=== PATIENT | female | born 1970 | race Caucasian/White ===

== ENCOUNTER → 2016-10-31 | Outpatient (CLI) | payer MEDICAID, BC ==
--- NOTE | 2016-11-01 11:50 | MM ---
Reason for exam: screening (asymptomatic). Last mammogram was performed 2 years and 8 months ago. History: Patient had first child at age 36. Physical Findings: A clinical breast exam by your physician is recommended on an annual basis and results should be correlated with mammographic findings. MG 3D Screening Mammo W/Cad Bilateral CC and MLO view(s) were taken. Prior study comparison: March 07, 2014, bilateral MG screening mammo w CAD. The breast tissue is heterogeneously dense. This may lower the sensitivity of mammography. Finding: There is a 4 mm high density, spiculated round mass located 6 cm from the nipple in the left breast. ASSESSMENT: Incomplete: need additional imaging evaluation, BI-RAD 0 RECOMMENDATION: Special view mammogram of the left breast. If lesion persists on supplemental views, image directed ultrasound is recommended. [facility] will attempt to contact patient to return for supplemental views and ultrasound if indicated.
== END | disposition home or self-care (01) ==
LOC: RADMAMWWP 08:30
PROVIDERS: ATTEND Obstetrics & Gynecology
DX: Z12.31 Encounter for screening mammogram for malignant neoplasm of breast (principal)
CPT/HCPCS: 77063; G0202

== ENCOUNTER → 2016-11-03 | Outpatient (CLI) | payer MEDICAID, BC ==
--- NOTE | 2016-11-03 09:00 | MM ---
Reason for exam: additional evaluation requested from abnormal screening. Last mammogram was performed less than 1 month ago. History: Patient had first child at age 36. Physical Findings: Patient refused breast exam. MG 3D Work Up W/Cad LT LM and spot compression CC view(s) were taken of the left breast. Prior study comparison: October 31, 2016, bilateral MG 3d screening mammo w/cad. March 07, 2014, bilateral MG screening mammo w CAD. The breast tissue is heterogeneously dense. This may lower the sensitivity of mammography. No suspicious abnormality. Abnormality appears as fibroglandular tissue on additional views. These results were verbally communicated with the patient and result sheet given to the patient on 11/03/16. ASSESSMENT: Negative, BI-RAD 1 RECOMMENDATION: Return to routine screening mammogram schedule for both breasts.
== END | disposition home or self-care (01) ==
LOC: RADMAMWWP 07:56
PROVIDERS: ATTEND Obstetrics & Gynecology
DX: R92.8 Other abnormal and inconclusive findings on diagnostic imaging of breast (principal)
CPT/HCPCS: G0206; G0279

== ENCOUNTER → 2017-02-10 | Outpatient (CLI) | payer MEDICAID, BC ==
--- NOTE | 2017-02-16 07:06 | HM ---
HOLTER MONITOR REPORT 24 HOLTER MONITOR: A 46-year-old female with history of recurrent palpitations following SVT ablation. A 24-four monitor shows sinus mechanism with one brief run of SVT/atrial tachycardia, nonsustained. No bradycardia or pauses. Infrequent PVCs and ventricular couplets. No nonsustained ventricular tachycardia. No sustained atrial fibrillation or SVT. MMODL / IJN: [id number] /
== END | disposition home or self-care (01) ==
LOC: RADECHMAIN 06:45
PROVIDERS: ATTEND Internal Medicine Clinical Cardiac Electrophysiology
DX: Z09 Encounter for follow-up examination after completed treatment for conditions other than malignant neoplasm (principal); Z86.79 Personal history of other diseases of the circulatory system
CPT/HCPCS: 93225; 93226

== ENCOUNTER → 2017-02-14 | Outpatient (CLI) | payer MEDICAID, BC ==
--- NOTE | 2017-02-14 14:19 | ECHOS ---
STRESS ECHOCARDIOGRAM INDICATIONS: Palpitations BASELINE HEART RATE: 100 BASELINE BLOOD PRESSURE: 125/65 MAXIMUM HEART RATE: 157 MAXIMUM BLOOD PRESSURE: 179/91 85% MPHR: 149 100% MPHR: 175 METS: 10.3 MAXIMUM STAGE REACHED: 3 TOTAL EXERCISE TIME: 9:00 CLINICAL INFORMATION: A 46-year-old female with a history of SVT, status post ablation, now complaining of chest discomfort and palpitations. Baseline heart rate 100 beats per minute. Baseline blood pressure 125/65 mmHg. Baseline 12-lead ECG showed normal sinus rhythm and normal cardiac intervals. Patient exercised on a Duc protocol for 9 minutes achieving a peak heart rate of 157 beats per minute. Normal blood pressure response to exercise. Occasional PVCs noted during stress testing. No definite ECG evidence for ischemia. No exercise induced SVT. The baseline 2D echo images showed normal LV size and systolic function without segmental wall motion abnormalities. At peak exercise, there was excellent augmentation of overall LV contractility without development of any wall motion abnormalities. At recovery, regional global LV systolic function remained normal. IMPRESSION: No ECG or echocardiographic evidence for ischemia. PVCs noted during the stress test but no sustained supraventricular arrhythmias. MMODL / IJN: [id number] /
== END | disposition home or self-care (01) ==
LOC: RADNMMAIN 08:41
PROVIDERS: ATTEND Internal Medicine Clinical Cardiac Electrophysiology
DX: I49.3 Ventricular premature depolarization (principal)
CPT/HCPCS: 93017; 93350

== ENCOUNTER → 2017-03-06 | Outpatient (CLI) | payer MEDICAID, BC ==
[2017-03-06 09:37] LABS: T4, Free (Free Thyroxine) 0.86 ng/dL (0.78-2.19)
== END | disposition home or self-care (01) ==
LOC: LABWHC1 08:23
PROVIDERS: ATTEND Family Medicine
DX: R00.2 Palpitations (principal)
CPT/HCPCS: 36415; 84439; 84443

== ENCOUNTER 2017-07-12 19:26 | Emergency (ER) | payer MEDICAID, BC ==
[2017-07-12] MEDS ORDERED: ONDANSETRON 4 MG/2 ML VIAL IVP STA (21:26)
[2017-07-12] MEDS ORDERED: MORPHINE SULFATE 2 MG/ML SYRINGE IVP STA (21:26)
[2017-07-12] MEDS ORDERED: SODIUM CHLORIDE 0.9% 500 ML IV STA (21:26)
[2017-07-12] MEDS ORDERED: SODIUM CHLORIDE 0.9% 1,000 ML IV STA (21:26)
[2017-07-12] MEDS ORDERED: PANTOPRAZOLE 40 MG/10 ML VIAL IVP STA (21:26)
[2017-07-12 21:46] LABS: Basophils % (A) 0 %; Eosinophils # (A) 0.2 k/uL (0-0.7); Eosinophils % (A) 2 %; HCT 44.2 % (34.0-46.0); HGB 14.8 gm/dL (11.4-16.0); Lymphocytes # (A) 0.5 k/uL (1.0-4.8); Lymphocytes % (A) 5 %; MCH 30.9 pg (25.0-35.0); MCHC 33.4 g/dL (31.0-37.0); MCV 92.3 fL (80.0-100.0); Mean Platelet Volume 6.6; Monocytes # (A) 0.5 k/uL (0-1.0); Monocytes % (A) 5 %; Neutrophils # (A) 8.6 k/uL (1.3-7.7); Neutrophils % (A) 88 %; Platelet Count 301 k/uL (150-450); RBC 4.79 m/uL (3.80-5.40); RDW 12.4 % (11.5-15.5); WBC 9.8 k/uL (3.8-10.6)
[2017-07-12 21:48] VITALS: RESP 18
--- NOTE | 2017-07-12 21:51 | XR ---
EXAMINATION TYPE: XR abdomen acute w cxr DATE OF EXAM: 07/12/2017 COMPARISON: NONE HISTORY: Pain fever TECHNIQUE: Chest is examined in the frontal projection. Abdomen is examined in the upright and supine views. FINDINGS: Surgical clips are within the pelvis. Normal colonic bowel gas is present. Psoas margins ar e normal. No mass effect is evident. No suspicious differential air-fluid levels are present. No free air is present. Organomegaly is not evident. Lung rivas are clear. IMPRESSION: 1. Normal acute abdominal series.
[2017-07-12 22:07] LABS: Appearance,Urine Clear (Clear); Bilirubin,Urine Negative (Negative); Blood,Urine Negative (Negative); Color,Urine Yellow; Glucose,Urine (UA) Negative (Negative); Ketones,Urine Negative (Negative); Leukocyte Esterase,Urine Negative (Negative); Nitrite,Urine Negative (Negative); Protein,Urine Negative (Negative); Specific Gravity,Urine 1.013 (1.001-1.035); Urobilinogen,Urine <2.0 mg/dL (<2.0)
[2017-07-12 22:08] LABS: ALT 27 U/L (9-52); AST 21 U/L (14-36); Albumin 4.7 g/dL (3.5-5.0); Alkaline Phosphatase 75 U/L (38-126); Amylase 37 U/L (30-110); Anion Gap 15 mmol/L; Blood Urea Nitrogen 15 mg/dL (7-17); C Reactive Protein 48.4 mg/L (<10.0); Calcium 9.7 mg/dL (8.4-10.2); Carbon Dioxide 22 mmol/L (22-30); Chloride 104 mmol/L (98-107); Glucose 120 mg/dL (74-99); Lipase 92 U/L (23-300); Potassium 3.9 mmol/L (3.5-5.1); Sodium 141 mmol/L (137-145); Total Bilirubin 0.6 mg/dL (0.2-1.3); Total Protein 7.1 g/dL (6.3-8.2)
[2017-07-12 23:13] VITALS: BP 121/61
[2017-07-12] MEDS ORDERED: RX INFO: IV CONTRAST WAS GIVEN 1 EACH MISC MISCELLANE PRN (23:38)
[2017-07-12] MEDS ORDERED: SODIUM CHLORIDE 0.9% 1,000 ML IV ONE (23:42)
[2017-07-12] MEDS ORDERED: cefTRIAXone IN SWFI 2,000 MG/20 ML SYRINGE IVP STA (23:42)
[2017-07-12] MEDS ORDERED: SODIUM CHLORIDE 0.9% 1,000 ML IV SCH (23:45)
[2017-07-13] MEDS ORDERED: MORPHINE SULFATE 2 MG/ML SYRINGE IVP STA (00:19)
--- NOTE | 2017-07-13 00:23 | CT ---
EXAMINATION TYPE: CT abdomen pelvis w con DATE OF EXAM: 07/13/2017 COMPARISON: NONE HISTORY: Patient presents with fever, RT side abd pain, and reduced appetite. Symptoms started yester day CT DLP: 605.60 mGycm Automated exposure control for dose reduction was used. TECHNIQUE: Helical acquisition of images was performed from the lung bases through the pelvis. CONTRAST: Performed without Oral Contrast and with IV Contrast, patient injected with 100 mL of Isovue 300. FINDINGS: Lung bases are clear. There is no pleural effusion. Liver spleen pancreas gallbladder appear normal. Bile ducts are not dilated. There is no adrenal mass. Kidneys show satisfactory contrast opacificatio n. There is no hydronephrosis. Ureters are not dilated. There is no retroperitoneal adenopathy. There is no ascites. There are clips from tubal ligation. I see no intestinal wall thickening. There are no dilated loops. There is no sign of appendicitis. Lumbar vertebra have normal spacing and alignment. Posterior elements are intact. Uterus is anteverte d. Appendix is not definitely seen. There is no sign of appendicitis. IMPRESSION: NO EVIDENCE OF RENAL STONE OR OBSTRUCTION. APPENDIX IS NOT SEEN. NO SIGN OF APPENDICITIS. KIDNEYS ENH ANCE FAIRLY WELL AND I DO NOT SEE EVIDENCE FOR PYELONEPHRITIS.
[2017-07-13 00:28] VITALS: PULSE 100; TEMP 101.2
[2017-07-13] MEDS ORDERED: ACETAMINOPHEN TAB 500 MG TAB PO STA (00:56)
--- NOTE | 2017-07-21 05:04 | ED ---
Abdominal Pain HPI - General Chief Complaint: Abdominal Pain Stated Complaint: fever Time Seen by Provider: 07/12/17 21:14 Source: patient Mode of arrival: ambulatory Limitations: no limitations - History of Present Illness Initial Comments: 6 years O female complaining about right-sided abdominal pain she said she feels rundown she feels fatigued appetite is down and she also had a fever of 101.2 by nausea no vomiting no diarrhea no constipation review of system is unremarkable otherwise - Related Data Home Medications Medication Instructions Recorded Confirmed No Known Home Medications [No 07/12/17 07/12/17 Known Home Medications] Allergies Allergy/AdvReac Type Severity Reaction Status Date / Time No Known Allergies Allergy Verified 07/12/17 21:21 Review of Systems ROS Statement: Those systems with pertinent positive or pertinent negative responses have been documented in the HPI. ROS Other: All systems not noted in ROS Statement are negative. Past Medical History Past Medical History: Eye Disorder, GERD/Reflux, Musculoskeletal Disorder Additional Past Medical History / Comment(s): EPISODE SUPRAVENTRICULAR TACHYCARDIA ON 10/03/14- HEART RATE WAS 270- SEEN IN [facility] SEE DR. URBINA'S H&P, HERNIATED DISC L4-L5, GLASSES DAILY USE , History of Any Multi-Drug Resistant Organisms: None Reported Past Surgical History: Cardiac Ablation, Section, Orthopedic Surgery, Tonsillectomy, Tubal Ligation, Uterine Ablation Additional Past Surgical History / Comment(s): 01-13-15 CARDIAC ABLATION, OTHER HX INCLUDES6 EPIDERAL INJ - LAST ONE 01/07/15 @ [facility], X 2, LT SHOULDER SURGERY 2012, EGD 07/03/15, R wrist sx Past Anesthesia/Blood Transfusion Reactions: Previous Problems w/ Anesthesia Additional Past Anesthesia/Blood Transfusion Reaction / Comment(s): episode of racing heart when received block FOR LEFT SHOULDER SURG. Past Psychological History: No Psychological Hx Reported Smoking Status: Never smoker Past Alcohol Use History: Occasional Past Drug Use History: None Reported - Past Family History Mother Family Medical History: Hypertension Father Family Medical History: Coronary Artery Disease (CAD), Myocardial Infarction ([place] ) Additional Family Medical History / Comment(s): @ AGE 52-[place] General Exam - General Exam Comments Initial Comments: General: The patient is awake and alert, in no distress, and does not appear acutely ill. Skin: Skin is warm and dry and no rashes or lesions are noted. Eye: Pupils are equal, round and reactive to light, extra-ocular movements are intact; there is normal conjunctiva bilaterally. Ears, nose, mouth and throat: There are moist mucous membranes and no oral lesions. Neck: The neck is supple, there is no tenderness or JVD. Cardiovascular: There is a regular rate and rhythm. No murmur, rub or gallop is appreciated. Respiratory: To auscultation bilateral, no wheezing no rhonchi no distress respiratory maria noticed Gastrointestinal: Is tender mildly over the right upper quadrant area right perinephric area and right lower quadrant area positive bowel sounds no guarding no rebounds. Back: There is no tenderness to palpation in the midline. There is no obvious deformity. Musculoskeletal: Normal ROM, no tenderness, There is no pedal edema. There is no calf tenderness or swelling. No cords were appreciated. Neurological: CN II-XII intact, Cranial nerves III through XII are intact. There are no obvious motor or sensory deficits. Coordination appears grossly intact. Speech is normal. Psychiatric: Cooperative, appropriate mood & affect, normal judgment. Limitations: no limitations Course Vital Signs 07/12/17 07/12/17 07/12/17 19:28 21:32 23:12 Temperature 98.3 F Pulse Rate 115 H 98 88 Respiratory 20 18 18 Rate Blood Pressure 153/79 137/81 121/61 O2 Sat by Pulse 98 99 98 Oximetry 07/13/17 00:28 Temperature 101.2 F H Pulse Rate 100 Respiratory 18 Rate Blood Pressure O2 Sat by Pulse 96 Oximetry Upon reassessment noticed temp was 101.2 CBC is normal comprehensive metabolic panel is unremarkable C-reactive protein is 48 urine is normal and strep is unremarkable as well Medical Decision Making - Lab Data Result diagrams: 07/12/17 21:20 07/12/17 21:20 Lab Results 07/12/17 07/12/17 07/12/17 Range/Units 21:20 21:20 21:20 WBC 9.8 (3.8-10.6) k/uL RBC 4.79 (3.80-5.40) m/uL Hgb 14.8 (11.4-16.0) gm/dL Hct 44.2 (34.0-46.0) % MCV 92.3 (80.0-100.0) fL MCH 30.9 (25.0-35.0) pg MCHC 33.4 (31.0-37.0) g/dL RDW 12.4 (11.5-15.5) % Plt Count 301 (150-450) k/uL Neutrophils % 88 % Lymphocytes % 5 % Monocytes % 5 % Eosinophils % 2 % Basophils % 0 % Neutrophils # 8.6 H (1.3-7.7) k/uL Lymphocytes # 0.5 L (1.0-4.8) k/uL Monocytes # 0.5 (0-1.0) k/uL Eosinophils # 0.2 (0-0.7) k/uL Basophils # 0.0 (0-0.2) k/uL Sodium 141 (137-145) mmol/L Potassium 3.9 (3.5-5.1) mmol/L Chloride 104 (98-107) mmol/L Carbon Dioxide 22 (22-30) mmol/L Anion Gap 15 mmol/L BUN 15 (7-17) mg/dL Creatinine 0.57 (0.52-1.04) mg/dL Est GFR (CKD-EPI)AfAm >90 (>60 ml/min/1.73 sqM) Est GFR (CKD-EPI)NonAf >90 (>60 ml/min/1.73 sqM) Glucose 120 H (74-99) mg/dL Plasma Lactic Acid Charlie 1.8 (0.7-2.0) mmol/L Calcium 9.7 (8.4-10.2) mg/dL Total Bilirubin 0.6 (0.2-1.3) mg/dL AST 21 (14-36) U/L ALT 27 (9-52) U/L Alkaline Phosphatase 75 (38-126) U/L Troponin I (0.000-0.034) ng/mL C-Reactive Protein 48.4 H (<10.0) mg/L Total Protein 7.1 (6.3-8.2) g/dL Albumin 4.7 (3.5-5.0) g/dL Amylase 37 (30-110) U/L Lipase 92 (23-300) U/L Urine Color Urine Appearance (Clear) Urine pH (5.0-8.0) Ur Specific [place] (1.001-1.035) Urine Protein (Negative) Urine Glucose (UA) (Negative) Urine Ketones (Negative) Urine Blood (Negative) Urine Nitrite (Negative) Urine Bilirubin (Negative) Urine Urobilinogen (<2.0) mg/dL Ur Leukocyte Esterase (Negative) Group A Strep Rapid (Negative) 07/12/17 07/12/17 07/12/17 Range/Units 21:20 21:45 23:10 WBC (3.8-10.6) k/uL RBC (3.80-5.40) m/uL Hgb (11.4-16.0) gm/dL Hct (34.0-46.0) % MCV (80.0-100.0) fL MCH (25.0-35.0) pg MCHC (31.0-37.0) g/dL RDW (11.5-15.5) % Plt Count (150-450) k/uL Neutrophils % % Lymphocytes % % Monocytes % % Eosinophils % % Basophils % % Neutrophils # (1.3-7.7) k/uL Lymphocytes # (1.0-4.8) k/uL Monocytes # (0-1.0) k/uL Eosinophils # (0-0.7) k/uL Basophils # (0-0.2) k/uL Sodium (137-145) mmol/L Potassium (3.5-5.1) mmol/L Chloride (98-107) mmol/L Carbon Dioxide (22-30) mmol/L Anion Gap mmol/L BUN (7-17) mg/dL Creatinine (0.52-1.04) mg/dL Est GFR (CKD-EPI)AfAm (>60 ml/min/1.73 sqM) Est GFR (CKD-EPI)NonAf (>60 ml/min/1.73 sqM) Glucose (74-99) mg/dL Plasma Lactic Acid Charlie (0.7-2.0) mmol/L Calcium (8.4-10.2) mg/dL Total Bilirubin (0.2-1.3) mg/dL AST (14-36) U/L ALT (9-52) U/L Alkaline Phosphatase (38-126) U/L Troponin I <0.012 (0.000-0.034) ng/mL C-Reactive Protein (<10.0) mg/L Total Protein (6.3-8.2) g/dL Albumin (3.5-5.0) g/dL Amylase (30-110) U/L Lipase (23-300) U/L Urine Color Yellow Urine Appearance Clear (Clear) Urine pH 6.0 (5.0-8.0) Ur Specific [place] 1.013 (1.001-1.035) Urine Protein Negative (Negative) Urine Glucose (UA) Negative (Negative) Urine Ketones Negative (Negative) Urine Blood Negative (Negative) Urine Nitrite Negative (Negative) Urine Bilirubin Negative (Negative) Urine Urobilinogen <2.0 (<2.0) mg/dL Ur Leukocyte Esterase Negative (Negative) Group A Strep Rapid Negative (Negative) Disposition Clinical Impression: Abdominal pain Disposition: HOME SELF-CARE Instructions: Abdominal Pain (ED) Additional Instructions: Shouldn't was advised to do Tylenol 1 g by mouth every 6 when necessary for the pain return to the ER if symptoms get worse, all the blood work and imaging studies were discussed with the patient Is patient prescribed a controlled substance at d/c from ED?: No Referrals: Kellie Robison MD [Primary Care Provider] - 1-2 days
== END 2017-07-13 02:08 | disposition home or self-care (01) ==
LOC: EC 19:26
DX: R10.9 Unspecified abdominal pain (principal); R50.9 Fever, unspecified; R53.83 Other fatigue; R11.0 Nausea; Z98.51 Tubal ligation status; Z98.890 Other specified postprocedural states
CPT/HCPCS: 36415; 80053; 82150; 83605; 83690; 84484; 85025; 86140; 81003; 87081; 87430; 74022; 74177; 99284; 96374; 96375 ×3; 96376; 96361 ×4; J2405; J0696; J2270 ×2; C9113; Q9967

== ENCOUNTER → 2017-12-08 | Outpatient (CLI) | payer MEDICAID, BC ==
--- NOTE | 2017-12-12 09:11 | MM ---
Reason for exam: screening (asymptomatic). Last mammogram was performed 1 year and 1 month ago. History: Patient had first child at age 36. Physical Findings: A clinical breast exam by your physician is recommended on an annual basis and results should be correlated with mammographic findings. MG 3D Screening Mammo W/Cad Bilateral CC and MLO view(s) were taken. Prior study comparison: November 03, 2016, left breast MG 3d work up w/cad LT. October 31, 2016, bilateral MG 3d screening mammo w/cad. The breast tissue is heterogeneously dense. This may lower the sensitivity of mammography. 9mm nodular focal asymmetry 2-3 o'clock anterior left breast is new from older priors. ASSESSMENT: Incomplete: need additional imaging evaluation, BI-RAD 0 RECOMMENDATION: Special view mammogram of the left breast. If lesion persists on supplemental views, image directed ultrasound is recommended. [facility] will attempt to contact patient to return for supplemental views and ultrasound if indicated.
== END | disposition home or self-care (01) ==
LOC: RADMAMWWP 14:25
PROVIDERS: ATTEND Obstetrics & Gynecology
DX: Z12.31 Encounter for screening mammogram for malignant neoplasm of breast (principal)
CPT/HCPCS: 77063; 77067

== ENCOUNTER → 2017-12-20 | Outpatient (CLI) | payer MEDICAID, BC ==
--- NOTE | 2017-12-21 09:02 | MM ---
Reason for exam: additional evaluation requested from abnormal screening. Last mammogram was performed less than 1 month ago. History: Patient had first child at age 36. Took hormonal contraceptives beginning at age 20. Physical Findings: Nurse did not find any significant physical abnormalities on exam. MG 3D Work Up W/Cad LT Spot compression CC, spot compression MLO, and LM view(s) were taken of the left breast. Prior study comparison: December 08, 2017, bilateral MG 3d screening mammo w/cad. November 03, 2016, left breast MG 3d work up w/cad LT. Nodularity persists upper outer quadrant. Ultrasound is recommended. These results were verbally communicated with the patient and result sheet given to the patient on 12/20/17. ASSESSMENT: Incomplete: need additional imaging evaluation, BI-RAD 0 RECOMMENDATION: Ultrasound of the left breast.
--- NOTE | 2017-12-21 09:03 | USB ---
Reason for exam: additional evaluation requested from abnormal screening. History: Patient had first child at age 36. Took hormonal contraceptives beginning at age 20. US Breast Workup Limited LT Left limited breast ultrasound including focal area of concern, retroareolar and axilla demonstrates a 9 x 5 x 8mm lobular, cystic lesion at 2 o'clock. These results were verbally communicated with the patient and result sheet given to the patient on 12/20/17. ASSESSMENT: Benign, BI-RAD 2 RECOMMENDATION: Return to routine screening mammogram schedule for both breasts.
== END | disposition home or self-care (01) ==
LOC: RADMAMWWP 13:59
PROVIDERS: ATTEND Obstetrics & Gynecology
DX: R92.8 Other abnormal and inconclusive findings on diagnostic imaging of breast (principal)
CPT/HCPCS: 77061; 77065

== ENCOUNTER → 2018-07-18 | Outpatient (CLI) | payer MEDICAID, BC ==
--- NOTE | 2018-07-18 12:55 | MR ---
EXAMINATION TYPE: MR knee RT wo con DATE OF EXAM: 07/18/2018 COMPARISON: None HISTORY: Right knee pain TECHNIQUE: Multiplanar, multisequence imaging of the right knee is performed without IV contrast. FINDINGS: MEDIAL MENISCUS: Anterior and posterior horns are intact without tear. LATERAL MENISCUS: Anterior and posterior horns are intact without tear. CRUCIATE LIGAMENTS: Posterior cruciate ligament is normal. The distal anterior cruciate ligament has some increased signal although the fibers appear preserved through the course. Some strain of the dis darwin anterior cruciate ligament could be considered. Correlate with the patient's clinical symptoms. COLLATERAL LIGAMENTS: The medial collateral ligament and lateral collateral ligament complex are inta ct and unremarkable. EXTENSOR MECHANISM: Visualized quadriceps and patellar tendons are intact. EFFUSION: Very minimal joint fluid is present. POPLITEAL CYST: No popliteal/angelo cyst. TRICOMPARTMENT SPACES: Tricompartment joint spaces are preserved. CARTILAGE: Articular cartilage appears preserved. BONE MARROW SIGNAL: No focal abnormal marrow signal is appreciated. OTHER: No additional significant abnormality is appreciated. IMPRESSION: Very minimal joint fluid. Some mild increased signal may be within the distal anterior cruciate ligam ent. Correlate for strain. No complete tear is evident.
== END | disposition home or self-care (01) ==
LOC: RADMRIMAIN 06:05
PROVIDERS: ATTEND Orthopaedic Surgery
DX: M25.561 Pain in right knee (principal)

== ENCOUNTER → 2018-11-02 | Outpatient (CLI) | payer MEDICAID, BC ==
--- NOTE | 2018-11-06 11:09 | HM ---
HOLTER MONITOR REPORT Patient was monitored for 24 hours. Baseline rhythm is a sinus mechanism with normal conduction. The average rate 82 beats per minute, minimum 56, and maximum 120 beats per minute. Ventricular ectopic activity was present in form of rare single PVCs. Supraventricular ectopic data was present in the form of rare single PACs. No symptoms were reported. CONCLUSION: 1. Sinus mechanism baseline rhythm. 2. Rare ventricular ectopic activity. 3. Rare supraventricular ectopic activity. 4. No symptoms were reported. MMODL / IJN: [id number] /
== END | disposition home or self-care (01) ==
LOC: RADECHMAIN 07:21
PROVIDERS: ATTEND Internal Medicine Clinical Cardiac Electrophysiology
DX: I47.1 Supraventricular tachycardia (principal)
CPT/HCPCS: 93225; 93226

== ENCOUNTER → 2019-02-08 | Outpatient (CLI) | payer MEDICAID, BC ==
[2019-02-08 16:06] LABS: African American GFR (CKD) 119.6 (60.0-200.0); Anion Gap 8.1 mmol/L (4.00-12.00); BUN/Creat Ratio 48.57 Ratio (12.00-20.00); Calcium 9.3 mg/dL (8.7-10.3); Carbon Dioxide 22.9 mmol/L (21.6-31.8); Chol/HDL Ratio 3.17; LDL Cholesterol,Calculated 122.6 mg/dL (0.0-131.0); Non-African American GFR(CKD) 103.2 (60.0-200.0); Potassium 4.3 mmol/L (3.5-5.5); VLDL Calculation 20.4 mg/dL (5.00-40.00)
== END | disposition home or self-care (01) ==
LOC: LABWHC1 08:16
PROVIDERS: ATTEND Physician Assistant
DX: E78.5 Hyperlipidemia, unspecified (principal); I47.1 Supraventricular tachycardia
CPT/HCPCS: 36415; 80048; 80061; 84443; 84481

== ENCOUNTER → 2019-10-17 | Outpatient (CLI) | payer MEDICAID, BC ==
--- NOTE | 2019-10-23 09:17 | MM ---
Reason for exam: screening (asymptomatic). Last mammogram was performed 1 year and 10 months ago. History: Patient had first child at age 36. Took hormonal contraceptives beginning at age 20. Physical Findings: A clinical breast exam by your physician is recommended on an annual basis and results should be correlated with mammographic findings. MG 3D Screening Mammo W/Cad Bilateral CC and MLO view(s) were taken. Prior study comparison: December 20, 2017, left breast MG 3d work up w/cad LT. December 08, 2017, bilateral MG 3d screening mammo w/cad. The breast tissue is heterogeneously dense. This may lower the sensitivity of mammography. Finding: There is a typically benign circumscribed round mass in the left breast. New oval mass right breast outer lower quadrant posterior depth. New finding since December 20, 2017 and December 08, 2017. ASSESSMENT: Incomplete: need additional imaging evaluation, BI-RAD 0 RECOMMENDATION: Special view mammogram of the right breast. If lesion persists on supplemental views, image directed ultrasound is recommended. [facility] will attempt to contact patient to return for supplemental views and ultrasound if indicated.
== END | disposition home or self-care (01) ==
LOC: RADMAMWWP 15:17
PROVIDERS: ATTEND Obstetrics & Gynecology
DX: Z12.31 Encounter for screening mammogram for malignant neoplasm of breast (principal)
CPT/HCPCS: 77063; 77067

== ENCOUNTER → 2019-10-28 | Outpatient (CLI) | payer MEDICAID, BC ==
--- NOTE | 2019-10-28 09:37 | USB ---
Reason for exam: additional evaluation requested from abnormal screening. History: Patient had first child at age 36. Took hormonal contraceptives beginning at age 20. US Breast Workup Limited RT Right limited breast ultrasound including focal area of concern, retroareolar and axilla demonstrates a 1.0 x 0.5 x 0.7cm oval, lobular, cystic lesion at 9 o'clock, simple cyst, a 0.6 x 0.2 x 0.7cm oval, cystic lesion at 10 o'clock, elongated thin walled cyst, a 0.6 x 0.3 x 0.8cm cystic cluster at 11 o'clock, a 0.5 x 0.4 x 0.4cm cystic lesion at 11 o'clock and a 0.9 x 0.4 x 0.6cm round, cystic lesion at 12 o'clock, thin walled cyst. These results were verbally communicated with the patient and result sheet given to the patient on 10/28/19. ASSESSMENT: Benign, BI-RAD 2 RECOMMENDATION: Return to routine screening mammogram schedule for both breasts.
--- NOTE | 2019-10-28 09:46 | MM ---
Reason for exam: additional evaluation requested from abnormal screening. Last mammogram was performed less than 1 month ago. History: Patient had first child at age 36. Took hormonal contraceptives beginning at age 20. Physical Findings: Nurse did not find any significant physical abnormalities on exam. MG 3D Work Up W/Cad RT Spot compression CC, spot compression MLO, and ML view(s) were taken of the right breast. Prior study comparison: October 17, 2019, bilateral MG 3d screening mammo w/cad. December 20, 2017, left breast MG 3d work up w/cad LT. Finding: There is a 7-9 mm indistinct oval mass located 7 cm from the nipple in the upper outer quadrant, posterior position of the right breast on dense tissue. These results were verbally communicated with the patient and result sheet given to the patient on 10/28/19. ASSESSMENT: Incomplete: need additional imaging evaluation, BI-RAD 0 RECOMMENDATION: Ultrasound of the right breast.
== END | disposition home or self-care (01) ==
LOC: RADMAMWWP 08:10
PROVIDERS: ATTEND Obstetrics & Gynecology
DX: R92.8 Other abnormal and inconclusive findings on diagnostic imaging of breast (principal)
CPT/HCPCS: 77061; 77065

== ENCOUNTER 2019-10-29 09:00 | Day surgery (SDC) | payer MEDICAID, BC ==
[2019-10-28 12:17] VITALS: BMI 30.2
[~2019-10-29 09:00] MED LIST: LACTATED RINGERS 1,000 ML IV SCH
[2019-10-29 09:52] VITALS: RESP 16; TEMP 99.1
[2019-10-29] MEDS ORDERED: LIDOCAINE 1% (10MG/ML) FOR IV START INTRADERMA ONE (10:00)
[2019-10-29] MEDS ORDERED: PROPOFOL 10 MG/ML 20 ML VIAL IV ONE (10:34)
[2019-10-29] MEDS ORDERED: LIDOCAINE 1% INJ 10MG/ML (20 ML MDV) ONE (10:34)
[2019-10-29] MEDS ORDERED: MIDAZOLAM 2 MG/2 ML VIAL ONE (10:34)
--- NOTE | 2019-10-29 10:44 | P.GSHP ---
History of Present Illness H&P Date: 10/29/19 Chief Complaint: GERD, change in bowel habits Patient with history of chronic reflux. Takes antiacids intermittently. EGD 5 years ago showed hiatal hernia. Patient's sister recently diagnosed with colon cancer. Patient does admit to intermittent constipation. No rectal bleeding. Past Medical History Past Medical History: Eye Disorder, GERD/Reflux, Musculoskeletal Disorder Additional Past Medical History / Comment(s): EPISODE SUPRAVENTRICULAR TACHYCARDIA 2014-had ablation,hiatal hernia, HERNIATED DISC L4-L5, twin sister w/new dx. colon cancer History of Any Multi-Drug Resistant Organisms: None Reported Past Surgical History: Cardiac Ablation, Section, Orthopedic Surgery, Tonsillectomy, Tubal Ligation, Uterine Ablation Additional Past Surgical History / Comment(s): EPIDURAL INJ - LAST ONE 01/07/15 @ [facility], X 2, LT SHOULDER SURGERY, EGD 07/03/15, R wrist sx Past Anesthesia/Blood Transfusion Reactions: Previous Problems w/ Anesthesia Additional Past Anesthesia/Blood Transfusion Reaction / Comment(s): episode of heart racing when received block FOR LEFT SHOULDER SURG-this was prior to cardiac ablation Smoking Status: Never smoker - Past Family History Sister(s) Family Medical History: Cancer Additional Family Medical History / Comment(s): twin sister w/new dx. colon cancer Mother Family Medical History: Hypertension Father Family Medical History: Coronary Artery Disease (CAD), Myocardial Infarction ([place]) Additional Family Medical History / Comment(s): @ AGE 52-[place] Medications and Allergies Home Medications Medication Instructions Recorded Confirmed Type Venlafaxine HCl ER [Effexor Xr] 37.5 mg PO DAILY 10/28/19 10/29/19 History Allergies Allergy/AdvReac Type Severity Reaction Status Date / Time No Known Allergies Allergy Verified 10/29/19 09:52 Surgical - Exam Vital Signs Temp Pulse Resp BP Pulse Ox 99.1 F 84 16 152/96 97 10/29/19 09:46 10/29/19 09:46 10/29/19 09:46 10/29/19 09:46 10/29/19 09:46 Physical exam: General: Well-developed, well-nourished HEENT: Normocephalic, sclerae nonicteric Abdomen: Nontender, nondistended Extremities: No edema Neuro: Alert and oriented Assessment and Plan (1) Colon cancer screening Narrative/Plan: Will proceed with upper and lower endoscopy Current Visit: Yes Status: Acute Code(s): Z12.11 - ENCOUNTER FOR SCREENING FOR MALIGNANT NEOPLASM OF COLON SNOMED Code(s): 353597908
--- NOTE | 2019-10-29 10:58 | P.PCN ---
Date of Procedure: 10/29/19 Procedure(s) Performed: PREOPERATIVE DIAGNOSIS: GERD, change in bowel habits POSTOPERATIVE DIAGNOSIS: Mild gastritis, small hiatal hernia, mild diverticulosis PROCEDURE: 1. EGD with biopsy 2. Colonoscopy ANESTHESIA: MAC SURGEON: Hai Robison M.D. SPECIMENS: Antrum ENDOSCOPIC PROCEDURE: The patient was on the endoscopy table in the left decubitus position. The Olympus gastroscope was inserted into the oropharynx and passed under direct visualization to the region of the third portion of the duodenum. From that point the scope was slowly withdrawn inspecting all surfaces carefully. There were no neoplastic inflammatory or polypoid lesions throughout the duodenum. The pylorus was widely patent. The stomach was carefully inspected. There was mild gastritis present. A biopsy of the antrum took place to rule out H. pylori. Retroflexion revealed a small sliding hiatal hernia. The esophagus was then carefully examined. There were no neoplastic inflammatory or polypoid lesions throughout the visualized esophagus. The patient was kept on the endoscopy table in the left decubitus position. The Olympus colonoscope was inserted into the anus and passed under direct visualization to the base of the cecum. The appendiceal orifice was visualized. From that point the scope was slowly withdrawn inspecting all surfaces carefully. There were no neoplastic inflammatory or polypoid lesions throughout the cecum, ascending, transverse, descending, sigmoid and rectum. There was mild diverticulosis noted. Digital rectal examination was normal. The patient was taken to the recovery room in stable condition per anesthesia guidelines. RECOMMENDATIONS: Resume diet. Increase fiber. Await biopsy results. Follow colonoscopy 5 years.
[2019-10-29 11:21] VITALS: PULSE 81
[2019-10-29 11:41] VITALS: BP 137/84
== END 2019-10-29 11:50 | disposition home or self-care (01) ==
LOC: ORWHC2ENDO 09:00
PROVIDERS: ATTEND Surgery
DX: K29.50 Unspecified chronic gastritis without bleeding (principal); K57.30 Diverticulosis of large intestine without perforation or abscess without bleeding; K44.9 Diaphragmatic hernia without obstruction or gangrene; K21.9 Gastro-esophageal reflux disease without esophagitis; K59.00 Constipation, unspecified; Z80.0 Family history of malignant neoplasm of digestive organs; I47.1 Supraventricular tachycardia; H57.9 Unspecified disorder of eye and adnexa; M51.26 Other intervertebral disc displacement, lumbar region; Z98.51 Tubal ligation status; Z98.890 Other specified postprocedural states; Z82.49 Family history of ischemic heart disease and other diseases of the circulatory system; Z79.899 Other long term (current) drug therapy; Z80.51 Family history of malignant neoplasm of kidney
CPT/HCPCS: 81025; 88305; 45378; 43239; J2250; J2001; J2704; 45380

== ENCOUNTER → 2019-11-05 | Outpatient (CLI) | payer MEDICAID, BC ==
--- NOTE | 2019-11-08 13:50 | HM ---
HOLTER MONITOR REPORT Mariana Fauts has a history of SVT, status post ablation. She underwent a 24 Holter monitor. The 11/06 Holter monitor shows sinus mechanism, heart rates ranged from 57-135 beats per minute, average 82 beats per minute, occasional PVCs and 1 brief run of atrial tachycardia for 5 beats only. MMSTEFF / FATMATA: [id number] /
== END | disposition home or self-care (01) ==
LOC: RADECHMAIN 06:58
PROVIDERS: ATTEND Internal Medicine Clinical Cardiac Electrophysiology
DX: I47.1 Supraventricular tachycardia (principal)
CPT/HCPCS: 93225; 93226

== ENCOUNTER → 2020-04-08 | Outpatient (CLI) | payer MEDICAID, BC ==
[2020-04-08 11:18] LABS: African American GFR (CKD) 118.7 (60.0-200.0); Albumin 4.2 g/dL (3.80-4.90); Albumin/Globulin Ratio 1.68 (1.60-3.17); Anion Gap 8.4 mmol/L (4.00-12.00); BUN/Creat Ratio 34.29 Ratio (12.00-20.00); Calcium 9.6 mg/dL (8.7-10.3); Carbon Dioxide 23.6 mmol/L (21.6-31.8); Chol/HDL Ratio 2.2; Globulin 2.5 g/dL (1.6-3.3); LDL Cholesterol,Calculated 66.4 mg/dL (0.0-131.0); Non-African American GFR(CKD) 102.5 (60.0-200.0); Potassium 4.3 mmol/L (3.5-5.5); Total Bilirubin 0.5 mg/dL (0.3-1.2); Total Protein 6.7 g/dL (6.2-8.2); VLDL Calculation 22.6 mg/dL (5.00-40.00)
== END | disposition home or self-care (01) ==
LOC: LABWHC1 06:49
PROVIDERS: ATTEND Internal Medicine Clinical Cardiac Electrophysiology
DX: E78.5 Hyperlipidemia, unspecified (principal); I47.1 Supraventricular tachycardia
CPT/HCPCS: 36415; 80053; 80061

== ENCOUNTER → 2020-10-21 | Outpatient (CLI) | payer MEDICAID, BC ==
--- NOTE | 2020-10-21 17:07 | ECHOF ---
Referral Reason:I47.1 Superventricular tachycardia, I49.3 Ventricu MEASUREMENTS -------- HEIGHT: 157.5 cm WEIGHT: 76.2 kg BP: RVIDd: 3.0 cm (< 3.3) IVSd: 1.0 cm (0.6 - 1.1) LVIDd: 4.2 cm (3.9 - 5.3) LVPWd: 1.1 cm (0.6 - 1.1) IVSs: 1.5 cm LVIDs: 2.5 cm LVPWs: 1.7 cm LAESV Index (A-L): 32.92 ml/m Ao Diam: 2.2 cm (2.0 - 3.7) AV Cusp: 1.6 cm (1.5 - 2.6) LA Diam: 3.5 cm (2.7 - 3.8) MV EXCURSION: 15.640 mm (> 18.000) MV EF SLOPE: 80 mm/s (70 - 150) EPSS: 0.5 cm MV E Deric: 1.15 m/s MV DecT: 195 ms MV A Deric: 0.88 m/s MV E/A Ratio: 1.31 AR PHT: 500 ms RAP: 5.00 mmHg RVSP: 30.32 mmHg FINDINGS -------- Sinus rhythm. This was a technically adequate study. The left ventricular size is normal. Left ventricular wall thickness is normal. Overall left vent ricular systolic function is normal with, an EF between 55 - 60 %. The diastolic filling pattern is normal for the age of the patient 9.86. The right ventricle is normal in size. LA is midly dilated 29-33ml/m2. The right atrial size is normal. 5.0mg of Lumason was utilized for enhancement of images Interatrial and interventricular septum intact. Trace to mild aortic regurgitation. There is no evidence of aortic stenosis. Mild mitral regurgitation is present. Mild tricuspid regurgitation present. There is no evidence of pulmonary hypertension. The right v entricular systolic pressure, as measured by Doppler, is 30.32mmHg. There is no pulmonic regurgitation present. The aortic root size is normal. Normal inferior vena cava with normal inspiratory collapse consistent with estimated right atrial pre ssure of 5 mmHg. There is no pericardial effusion. CONCLUSIONS -------- 1. The left ventricular size is normal. 2. Left ventricular wall thickness is normal. 3. Overall left ventricular systolic function is normal with, an EF between 55 - 60 %. 4. The diastolic filling pattern is normal for the age of the patient 9.86 5. LA is midly dilated 29-33ml/m2. 6. Trace to mild aortic regurgitation. 7. Mild mitral regurgitation is present. 8. Mild tricuspid regurgitation present. [employer] HISTORY TEACHER: Trisha Valentine RDCS
== END | disposition home or self-care (01) ==
LOC: RADECHMAIN 14:40
PROVIDERS: ATTEND Internal Medicine Clinical Cardiac Electrophysiology
DX: I47.1 Supraventricular tachycardia (principal); I49.3 Ventricular premature depolarization
CPT/HCPCS: 93306

== ENCOUNTER → 2020-11-09 | Outpatient (CLI) | payer MEDICAID, BC, OTHER | END | disposition home or self-care (01) | LOC: LABWHC1 08:20 | PROVIDERS: ATTEND Emergency Medicine | DX: Z03.818 Encounter for observation for suspected exposure to other biological agents ruled out (principal); Z20.822 Contact with and (suspected) exposure to COVID-19 | CPT/HCPCS: 87635 ==

== ENCOUNTER → 2020-11-09 | Outpatient (CLI) | payer MEDICAID, BC ==
--- NOTE | 2020-11-09 21:10 | XR ---
EXAMINATION TYPE: XR chest 2V DATE OF EXAM: 11/09/2020 COMPARISON: 01/11/2015 HISTORY: 49-year-old female R05, R09.81 TECHNIQUE: Frontal and lateral views FINDINGS: Heart normal size. Aorta and pulmonary vasculature within normal limits. Linear atelectasis in the lo wer lungs. No consolidation or pleural effusion. IMPRESSION: No acute cardiopulmonary process.
== END | disposition home or self-care (01) ==
LOC: RADXRMAIN 16:38
PROVIDERS: ATTEND Family Medicine
DX: R05 Cough (principal); R09.81 Nasal congestion
CPT/HCPCS: 71046

== ENCOUNTER → 2020-11-10 | Outpatient (CLI) | payer MEDICAID, BC, OTHER | END | disposition home or self-care (01) | LOC: LABWHC1 08:12 | PROVIDERS: ATTEND Emergency Medicine | DX: Z20.822 Contact with and (suspected) exposure to COVID-19 (principal) | CPT/HCPCS: 87635 ==

== ENCOUNTER → 2020-11-23 | Outpatient (CLI) | payer MEDICAID, BC ==
--- NOTE | 2020-11-24 12:16 | MM ---
Reason for exam: screening (asymptomatic). Last mammogram was performed 1 year and 1 month ago. History: Patient had first child at age 36. Took hormonal contraceptives beginning at age 20. Physical Findings: A clinical breast exam by your physician is recommended on an annual basis and results should be correlated with mammographic findings. MG 3D Screening Mammo W/Cad Bilateral CC and MLO view(s) were taken. Prior study comparison: October 17, 2019, bilateral MG 3d screening mammo w/cad. December 08, 2017, bilateral MG 3d screening mammo w/cad. The breast tissue is heterogeneously dense. This may lower the sensitivity of mammography. There is no discrete abnormality. ASSESSMENT: Negative, BI-RAD 1 RECOMMENDATION: Routine screening mammogram of both breasts in 1 year.
== END | disposition home or self-care (01) ==
LOC: RADMAMWWP 15:13
PROVIDERS: ATTEND Family Medicine
DX: Z12.31 Encounter for screening mammogram for malignant neoplasm of breast (principal)
CPT/HCPCS: 77063; 77067

== ENCOUNTER → 2021-05-27 | Outpatient (CLI) | payer MEDICAID, BC ==
[2021-05-27 07:56] LABS: HCT 43.2 % (34.0-46.0); HGB 13.8 gm/dL (11.4-16.0); MCH 30.4 pg (25.0-35.0); MCHC 32.1 g/dL (31.0-37.0); MCV 94.9 fL (80.0-100.0); Mean Platelet Volume 7.2; Platelet Count 344 k/uL (150-450); RBC 4.55 m/uL (3.80-5.40); RDW 11.9 % (11.5-15.5); WBC 7.6 k/uL (3.8-10.6)
[2021-05-27 08:13] LABS: ALT 25 U/L (4-34); AST 28 U/L (14-36); African American GFR (CKD) >90 (>60 ml/min/1.73 sqM); Albumin 4.5 g/dL (3.5-5.0); Albumin/Globulin Ratio 1.6; Alkaline Phosphatase 72 U/L (38-126); Anion Gap 8 mmol/L; Blood Urea Nitrogen 25 mg/dL (7-17); Calcium 9.5 mg/dL (8.4-10.2); Carbon Dioxide 25 mmol/L (22-30); Chloride 106 mmol/L (98-107); Globulin 2.9 g/dL; Glucose 97 mg/dL (74-99); Magnesium 2.1 mg/dL (1.6-2.3); Non-African American GFR(CKD) 90 (>60 ml/min/1.73 sqM); Potassium 4.4 mmol/L (3.5-5.1); Sodium 139 mmol/L (137-145); Total Bilirubin 0.7 mg/dL (0.2-1.3); Total Protein 7.4 g/dL (6.3-8.2)
[2021-05-27 15:23] LABS: Chol/HDL Ratio 2.53 Ratio; LDL Cholesterol,Calculated 80.3 mg/dL (0.0-131.0)
== END | disposition home or self-care (01) ==
LOC: RADXRMAIN 07:36
PROVIDERS: ATTEND Nurse Practitioner Adult Health
DX: E78.5 Hyperlipidemia, unspecified (principal); I10 Essential (primary) hypertension; I47.1 Supraventricular tachycardia
CPT/HCPCS: 80053; 80061; 83735; 84443; 85027

== ENCOUNTER → 2021-11-16 | Outpatient (CLI) | payer MEDICAID, BC ==
[2021-11-16 10:41] LABS: Basophils # (A) 0.04 X 10*3/uL (0.00-0.10); Basophils % (A) 0.6 %; Eosinophils # (A) 0.09 X 10*3/uL (0.04-0.35); Eosinophils % (A) 1.3 %; HCT 40.2 % (37.2-46.3); HGB 13.3 g/dL (12.0-15.0); Immature Grans, Automated 0.3 %; Lymphocytes # (A) 1.97 X 10*3/uL (0.90-5.00); Lymphocytes % (A) 28.2 %; MCH 30.9 pg (27.0-32.0); MCHC 33.1 g/dL (32.0-37.0); MCV 93.3 fL (80.0-97.0); Mean Platelet Volume 10.1 fL (9.5-12.2); Monocytes # (A) 0.68 X 10*3/uL (0.20-1.00); Monocytes % (A) 9.7 %; NRBC Per 100 WBC 0 /100 WBCS (0.0-0.0); Neutrophils # (A) 4.18 X 10*3/uL (1.80-7.70); Neutrophils % (A) 59.9 %; Platelet Count 300 X 10*3/uL (140-440); RBC 4.31 X 10*6/uL (4.10-5.20); RDW 11.9 % (11.5-14.5); WBC 6.98 X 10*3/uL (4.50-10.00)
[2021-11-16 11:09] LABS: African American GFR (CKD) 117.9 (60.0-200.0); BUN/Creat Ratio 34.14 Ratio (12.00-20.00); Blood Urea Nitrogen 23.9 mg/dL (9.0-27.0); Calcium 9.1 mg/dL (8.7-10.3); Carbon Dioxide 22.7 mmol/L (20.0-27.5); Chloride 104 mmol/L (96-109); Chol/HDL Ratio 2.43 Ratio; Glucose 90 mg/dL (70-110); LDL Cholesterol,Calculated 74.3 mg/dL (0.0-131.0); Non-African American GFR(CKD) 101.7 (60.0-200.0); Potassium 4.5 mmol/L (3.5-5.5); Sodium 137 mmol/L (135-145)
== END | disposition home or self-care (01) ==
LOC: LABWHC1 06:59
PROVIDERS: ATTEND Internal Medicine Clinical Cardiac Electrophysiology
DX: Z13.29 Encounter for screening for other suspected endocrine disorder (principal); I10 Essential (primary) hypertension; E78.00 Pure hypercholesterolemia, unspecified
CPT/HCPCS: 36415; 80048; 80061; 84443; 85025

== ENCOUNTER 2022-03-08 06:55 | Emergency (ER) | payer MEDICAID, BC ==
[2022-03-08 07:01] VITALS: RESP 18
[2022-03-08] MEDS ORDERED: ONDANSETRON 4 MG/2 ML VIAL IVP STA (07:34)
[2022-03-08] MEDS ORDERED: PANTOPRAZOLE 40 MG/10 ML VIAL IVP STA (07:34)
[2022-03-08] MEDS ORDERED: SODIUM CHLORIDE 0.9% 1,000 ML IV STA (07:36)
[2022-03-08] MEDS ORDERED: MORPHINE SULFATE 4 MG/ML SYRINGE IVP STA (08:02)
[2022-03-08 08:37] LABS: HCG,Qualitative Serum Not Detected; INR 0.9 (<1.2)
[2022-03-08 08:38] LABS: ALT 26 U/L (4-34); AST 25 U/L (14-36); African American GFR (CKD) >90 (>60 ml/min/1.73 sqM); Albumin 4.4 g/dL (3.5-5.0); Alkaline Phosphatase 71 U/L (38-126); Anion Gap 8 mmol/L; Blood Urea Nitrogen 22 mg/dL (7-17); Carbon Dioxide 22 mmol/L (22-30); Chloride 107 mmol/L (98-107); Glucose 121 mg/dL (74-99); Lipase 69 U/L (23-300); Non-African American GFR(CKD) >90 (>60 ml/min/1.73 sqM); Partial Thromboplastin Time 22.7 sec (22.0-30.0); Potassium 4.1 mmol/L (3.5-5.1); Sodium 137 mmol/L (137-145); Total Bilirubin 0.5 mg/dL (0.2-1.3); Total Protein 6.9 g/dL (6.3-8.2)
[2022-03-08 08:42] LABS: Basophils # (A) 0.1 k/uL (0-0.2); Basophils % (A) 1 %; Eosinophils % (A) 0 %; HCT 38.6 % (34.0-46.0); HGB 13.6 gm/dL (11.4-16.0); Lymphocytes # (A) 0.7 k/uL (1.0-4.8); Lymphocytes % (A) 7 %; MCH 32.2 pg (25.0-35.0); MCHC 35.3 g/dL (31.0-37.0); MCV 91.3 fL (80.0-100.0); Mean Platelet Volume 7.4; Monocytes # (A) 0.5 k/uL (0-1.0); Monocytes % (A) 5 %; Neutrophils # (A) 8.3 k/uL (1.3-7.7); Neutrophils % (A) 86 %; Platelet Count 315 k/uL (150-450); RBC 4.23 m/uL (3.80-5.40); RDW 12.3 % (11.5-15.5); WBC 9.7 k/uL (3.8-10.6)
--- NOTE | 2022-03-08 09:07 | XR ---
EXAMINATION TYPE: XR chest 2V DATE OF EXAM: 03/08/2022 COMPARISON: 11/09/2020 HISTORY: 51-year-old female with pain TECHNIQUE: PA and lateral views FINDINGS: Heart normal size. Aorta and pulmonary vasculature within normal limits. Strandy atelectasis lower sammy ngs. No consolidation or pleural effusion. IMPRESSION: No acute cardiopulmonary process.
--- NOTE | 2022-03-08 09:16 | ED ---
General Adult HPI - General Chief complaint: GI Bleed Stated complaint: left side pain,vag bleeding Time Seen by Provider: 03/08/22 07:33 Source: patient, RN notes reviewed, old records reviewed Mode of arrival: ambulatory Limitations: no limitations - History of Present Illness Initial comments: Patient is a 51-year-old female with past medical history remarkable for hypertension, hyperlipidemia who presents emergency Department complaining of sudden onset left-sided abdominal pain with associated blood in her stool. States she had pain this morning at approximately 1 AM and thought she had to use the restroom. Had a hard bowel movement and then had some loose bowel movements after that. Noticed that she had some right red blood in her stool at that time. It was surrounding the stool. No rectal pain. No history of GI bleed. Is not on blood thinners. No history diverticulosis. States the pain is primarily in the left lower quadrant. No fevers or chills or sick contacts. Describes the pain as an achy sensation. Does not radiate. Denies chest pain, shortness of breath. Denies any nausea or vomiting. Denies any headaches or w eakness. Presents for further evaluation at this time. Last had a colonoscopy 2 years ago and it was clean per patient. I discussed with the patient, and she is confident that she is not having vaginal bleeding. She denies any vaginal bleeding or discharge. Denies any urinary complaints. Denies . - Related Data Home Medications Medication Instructions Recorded Confirmed Venlafaxine HCl ER [Effexor Xr] 37.5 mg PO DAILY 10/28/19 10/29/19 Previous Rx's Medication Instructions Recorded Amoxic-Pot Clav 875-125Mg 1 tab PO Q8HR 10 Days #30 tab 03/08/22 [Augmentin 875-125] Dicyclomine [Bentyl] 10 mg PO TID 7 Days #21 capsule 03/08/22 HYDROcodone/APAP 5-325MG [[place] 1 tab PO Q6HR PRN 3 Days #12 tab 03/08/22 5-325] Ondansetron Odt [Zofran Odt] 4 mg PO Q8HR PRN 3 Days #9 tab 03/08/22 Pantoprazole [Protonix] 40 mg PO DAILY 7 Days #7 tab 03/08/22 Allergies Allergy/AdvReac Type Severity Reaction Status Date / Time No Known Allergies Allergy Verified 10/29/19 09:52 Review of Systems ROS Statement: Those systems with pertinent positive or pertinent negative responses have been documented in the HPI. Review of Systems: CONST: Denies fever EYES: Denies blurry vision ENT: Denies nasal congestion C/V: Denies Chest pain RESP: Denies shortness of breath GI: Endorses abdominal pain : Denies dysuria SKIN: Denies rash. MSK: Denies joint pain. NEURO: Denies headache ROS Other: All systems not noted in ROS Statement are negative. Past Medical History Past Medical History: Hyperlipidemia, Hypertension Additional Past Medical History / Comment(s): EPISODE SUPRAVENTRICULAR TACHYCARDIA ON 10/03/14- HEART RATE WAS 270- SEEN IN [facility] SEE DR. URBINA'S H&P, HERNIATED DISC L4-L5, GLASSES DAILY USE , History of Any Multi-Drug Resistant Organisms: None Reported Past Surgical History: Ablation, Section, Orthopedic Surgery, Tubal Ligation, Uterine Ablation Additional Past Surgical History / Comment(s): 01-13-15 CARDIAC ABLATION, OTHER HX INCLUDES6 EPIDERAL INJ - LAST ONE 01/07/15 @ [facility], X 2, LT SHOULDER SURGERY 2012, EGD 07/03/15, R wrist sx Past Anesthesia/Blood Transfusion Reactions: Previous Problems w/ Anesthesia Additional Past Anesthesia/Blood Transfusion Reaction / Comment(s): episode of racing heart when received block FOR LEFT SHOULDER SURG. Past Psychological History: No Psychological Hx Reported Smoking Status: Never smoker Past Alcohol Use History: Rare Past Drug Use History: None Reported - Past Family History Sister(s) Family Medical History: Cancer Additional Family Medical History / Comment(s): twin sister w/new dx. colon cancer Mother Family Medical History: Hypertension Father Family Medical History: Coronary Artery Disease (CAD), Myocardial Infarction (ND) Additional Family Medical History / Comment(s): @ AGE 52-ND General Exam - General Exam Comments Initial Comments: General: Appears in no acute distress. HEAD: Normal with no signs of head trauma. EYES: PERRLA, EOMI, conjunctiva normal, no discharge. ENT: Hearing grossly intact, normal oropharynx. RESPIRATORY: Clear breath sounds bilaterally. No wheezes, rales, or rhonchi. C/V: Regular rate and rhythm. S1 and S2 auscultated, no edema, peripheral pulses 2+ and intact throughout ABD: Abdomen soft, nondistended. Tender to palpation the left lower quadrant. No guarding. No peritoneal signs. No rebound tenderness. No CVA tenderness to percussion. Rectal exam performed in the presence of a female staff member. Good rectal tone. No gross blood. Brown stool. Occult blood was sent. EXT: Normal range of motion, no obvious deformity SKIN: No rashes or lesions observed on exposed skin. NEURO: Alert and oriented 4. Limitations: no limitations Course Vital Signs 03/08/22 03/08/22 06:58 07:57 Temperature 98.2 F Pulse Rate 109 H 96 Respiratory 18 18 Rate Blood Pressure 126/88 124/86 O2 Sat by Pulse 97 98 Oximetry Medical Decision Making - Medical Decision Making Based on the patient's presentation and physical exam, I'm concerned for a slow GI bleed for the patient. I'm concerned for intra-abdominal process for her at this time. This includes diverticulosis, diverticulitis. Rectal exam was unremarkable. We will will send occult blood in addition to abdominal laboratory studies. CT on pelvis with contrast will be obtained. Patiently sent likely treatment with IV morphine, Protonix, Zofran as well as IV fluids. Patient was in agreement this plan. Vital signs within except for limits. EKG showed no signs of acute ischemia. Laboratory studies are remarkable for hemoglobin within normal limits. Lactic acid is within normal limits. Patient is not . Stool Occult blood is positive. Chest x-ray was obtained and is remarkable for no acute cardio pulmonary process.CT abdomen and pelvis GI bleed protocol was performed. This revealed no evidence of diverticulitis or active bleed. There is mild wall thickening involving the descending colon, likely secondary to nonspecific colitis. No evidence of diverticulitis. On reevaluation, discuss results with the patient. She is feeling improved. We discussed her normal workup. She has no symptoms of symptomatic anemia at this time. Hemoglobin is within normal limits. I do believe it is safer to be discharged home, and her symptoms are likely secondary to the colitis. I did discuss that there was microscopic blood present, however I do believe it is safer to be discharged home. She was in agreement this plan. I will empirically start her on antibiotics due to the colitis nonbleeding. He'll be started on Augmentin, as well as given prescriptions for [place] for breakthrough pain, Bentyl, Protonix, Zofran. She was in agreement this plan. Strict return precautions were discussed. I answered all questions that she had. I will provide the patient with a prescription for Bentyl, Protonix, ODT Zofran, Augmentin, [place]. I instructed the patient to follow up with their PCP in the next 1-3 days. I provided contact information for follow up with GI. I explained that the patient should return to the emergency department if they experience any worsening symptoms. Strict return precautions were discussed with the patient. The patient expressed understanding of these instructions. I answered all questions that the patient had. The patient was discharged home in good condition with their prescriptions and follow up information. Was pt. sent in by a medical professional or institution (, PA, SHIELD OPERATOR, urgent care, hospital, or fci...) When possible be specific @ -No Did you speak to anyone other than the patient for history (EMS, parent, family, police, friend...)? What history was obtained from this source @ -No Did you review nursing and triage notes (agree or disagree)? Why? @ -I reviewed and agree with nursing and triage notes Were old charts reviewed (outside hosp., previous admission, EMS record, old EKG, old radiological studies, urgent care reports/EKG's, fci records)? Report findings @ -Yes, old EKG was reviewed from January 2015. Differential Diagnosis (chest pain, altered mental status, abdominal pain women, abdominal pain men, vaginal bleeding, weakness, fever, dyspnea, syncope, headache, dizziness, GI bleed, back pain, seizure, CVA, palpatations, mental health)? @ -Differential Abdominal Pain Women: Appendicitis, Cholecystitis, diverticulosis, ischemic bowel, pancreatitis, hepatitis, UTI, gastroenteritis, AAA, incarcerated hernia, bowel obstruction, constipation, inflammatory bowel, hepatitis, peptic ulcer disease, splenic infarction, perforated viscus, vulvitis, ovarian torsion, PID, kidney stone, placenta abruption, this is not meant to be an all-inclusive list EKG interpreted by me (3pts min.). @ -As above X-rays interpreted by me (1pt min.). @ -Chest x-ray revealed no evidence of acute cardio pulmonary process. CT interpreted by me (1pt min.). @ -CT abdomen and pelvis GI bleed protocol revealed no evidence of obvious GI bleed. Nonspecific colitis is present on the left abdomen. U/S interpreted by me (1pt. min.). @ -None done What testing was considered but not performed or refused? (CT, X-rays, U/S, labs )? Why? @ -None What meds were considered but not given or refused? Why? @ -None Did you discuss the management of the patient with other professionals (professionals i.e. Dr., PA, SHIELD OPERATOR, lab, RT, psych nurse, social welfare clerk, content administrator, teacher, life science technical officer, rifle case repairer)? Give summary @ -No Was smoking cessation discussed for >3mins.? @ -No Was critical care preformed (if so, how long)? @ -No Were there social determinants of health that impacted care today? How? (Homelessness, low income, unemployed, alcoholism, drug addiction, transportation, low edu. Level, literacy, decrease access to med. care, halfway, rehab)? @ -No Was there de-escalation of care discussed even if they declined (Discuss DNR or withdrawal of care, Hospice)? DNR status @ -No What co-morbidities impacted this encounter? (DM, HTN, Smoking, COPD, CAD, Cancer, CVA, ARF, Chemo, Hep., AIDS, mental health diagnosis, sleep apnea, morbid obesity)? @ -None Was patient admitted / discharged? Hospital course, mention meds given and route, prescriptions, significant lab abnormalities, going to OR and other pertinent info. @ -Discharged home. See above for emergency Department course. Undiagnosed new problem with uncertain prognosis? @ -No Drug Therapy requiring intensive monitoring for toxicity (Heparin, Nitro, Insulin, Cardizem)? @ -No Were any procedures done? @ -No Diagnosis/symptom? @ -Colitis Acute, or Chronic, or Acute on Chronic? @ -Acute Uncomplicated (without systemic symptoms) or Complicated (systemic symptoms)? @ -Uncomplicated Side effects of treatment? @ -No Exacerbation, Progression, or Severe Exacerbation? @ -No Poses a threat to life or bodily function? How? (Chest pain, [place], [place], pneumonia, PE, COPD, DKA, ARF, appy, cholecystitis, CVA, Diverticulitis, Homicidal, Suicidal, threat to staff... and all critical care pts) @ -No Diagnosis/symptom? @ -GI bleed likely secondary to colitis Acute, or Chronic, or Acute on Chronic? @ -Acute Uncomplicated (without systemic symptoms) or Complicated (systemic symptoms)? @ -Uncomplicated Side effects of treatment? @ -none Exacerbation, Progression, or Severe Exacerbation] @ -no Poses a threat to life or bodily function? @ -Yes, if it progressively worsens can result in significant morbidity and mortality. Currently stable. - Lab Data Result diagrams: 03/08/22 08:09 03/08/22 08:09 Lab Results 03/08/22 03/08/22 03/08/22 Range/Units 08:09 08:09 08:09 WBC 9.7 (3.8-10.6) k/uL RBC 4.23 (3.80-5.40) m/uL Hgb 13.6 (11.4-16.0) gm/dL Hct 38.6 (34.0-46.0) % MCV 91.3 (80.0-100.0) fL MCH 32.2 (25.0-35.0) pg MCHC 35.3 (31.0-37.0) g/dL RDW 12.3 (11.5-15.5) % Plt Count 315 (150-450) k/uL MPV 7.4 Neutrophils % 86 % Lymphocytes % 7 % Monocytes % 5 % Eosinophils % 0 % Basophils % 1 % Neutrophils # 8.3 H (1.3-7.7) k/uL Lymphocytes # 0.7 L (1.0-4.8) k/uL Monocytes # 0.5 (0-1.0) k/uL Eosinophils # 0.0 (0-0.7) k/uL Basophils # 0.1 (0-0.2) k/uL PT 10.0 (9.0-12.0) sec INR 0.9 (<1.2) APTT 22.7 (22.0-30.0) sec Sodium 137 (137-145) mmol/L Potassium 4.1 (3.5-5.1) mmol/L Chloride 107 (98-107) mmol/L Carbon Dioxide 22 (22-30) mmol/L Anion Gap 8 mmol/L BUN 22 H (7-17) mg/dL Creatinine 0.76 (0.52-1.04) mg/dL Est GFR (CKD-EPI)AfAm >90 (>60 ml/min/1.73 sqM) Est GFR (CKD-EPI)NonAf >90 (>60 ml/min/1.73 sqM) Glucose 121 H (74-99) mg/dL Plasma Lactic Acid Charlie (0.7-2.0) mmol/L Calcium 9.0 (8.4-10.2) mg/dL Magnesium 2.0 (1.6-2.3) mg/dL Total Bilirubin 0.5 (0.2-1.3) mg/dL AST 25 (14-36) U/L ALT 26 (4-34) U/L Alkaline Phosphatase 71 (38-126) U/L Total Protein 6.9 (6.3-8.2) g/dL Albumin 4.4 (3.5-5.0) g/dL Lipase 69 (23-300) U/L HCG, Qual Not Detected Stool Occult Blood (Negative) Blood Type Blood Type Recheck Bld Type Recheck Status Antibody Screen Spec Expiration Date 03/08/22 03/08/22 03/08/22 Range/Units 08:09 08:09 08:09 WBC (3.8-10.6) k/uL RBC (3.80-5.40) m/uL Hgb (11.4-16.0) gm/dL Hct (34.0-46.0) % MCV (80.0-100.0) fL MCH (25.0-35.0) pg MCHC (31.0-37.0) g/dL RDW (11.5-15.5) % Plt Count (150-450) k/uL MPV Neutrophils % % Lymphocytes % % Monocytes % % Eosinophils % % Basophils % % Neutrophils # (1.3-7.7) k/uL Lymphocytes # (1.0-4.8) k/uL Monocytes # (0-1.0) k/uL Eosinophils # (0-0.7) k/uL Basophils # (0-0.2) k/uL PT (9.0-12.0) sec INR (<1.2) APTT (22.0-30.0) sec Sodium (137-145) mmol/L Potassium (3.5-5.1) mmol/L Chloride (98-107) mmol/L Carbon Dioxide (22-30) mmol/L Anion Gap mmol/L BUN (7-17) mg/dL Creatinine (0.52-1.04) mg/dL Est GFR (CKD-EPI)AfAm (>60 ml/min/1.73 sqM) Est GFR (CKD-EPI)NonAf (>60 ml/min/1.73 sqM) Glucose (74-99) mg/dL Plasma Lactic Acid Charlie 2.0 (0.7-2.0) mmol/L Calcium (8.4-10.2) mg/dL Magnesium (1.6-2.3) mg/dL Total Bilirubin (0.2-1.3) mg/dL AST (14-36) U/L ALT (4-34) U/L Alkaline Phosphatase (38-126) U/L Total Protein (6.3-8.2) g/dL Albumin (3.5-5.0) g/dL Lipase (23-300) U/L HCG, Qual Stool Occult Blood Positive H (Negative) Blood Type B Positive Blood Type Recheck B Pos Bld Type Recheck Status No Antibody Screen NEGATIVE Spec Expiration Date 03/11/20222308 - EKG Data -: EKG Interpreted by Me EKG Comments: 12-lead Electrocardiogram Interpretation Note EKG was reviewed and interpreted by myself. 12-lead ECG performed at 0809 is interpreted by me as revealing normal sinus rhythm at a rate of 87 beats per minute. [place] is normal. [place] interval is 138 ms, QRS duration is 101 ms, QTc is 412 ms.. There were no ST or T wave abnormalities to suggest myocardial ischemia or injury. R wave progression across the precordium was satisfactory. By my interpretation this EKG is non-diagnostic for acute ischemia. When compared with EKG from January 2015, no significant change. Disposition Clinical Impression: Colitis, GI bleed Disposition: HOME SELF-CARE Condition: Good Instructions (If sedation given, give patient instructions): Gastrointestinal Bleeding (ED), Colitis (ED) Prescriptions: Amoxic-Pot Clav 875-125Mg [Augmentin 875-125] 1 tab PO Q8HR 10 Days #30 tab Dicyclomine [Bentyl] 10 mg PO TID 7 Days #21 capsule HYDROcodone/APAP 5-325MG [[place] 5-325] 1 tab PO Q6HR PRN 3 Days #12 tab PRN Reason: Pain Pantoprazole [Protonix] 40 mg PO DAILY 7 Days #7 tab Ondansetron Odt [Zofran Odt] 4 mg PO Q8HR PRN 3 Days #9 tab PRN Reason: Nausea Is patient prescribed a controlled substance at d/c from ED?: Yes When asked, does pt state using other controlled substances?: No If prescribed controlled substance>3 days was MAPS reviewed?: Prescribed <3 Days If opioid is for acute pain is fill amount 7 days or less?: Yes If Rx opioid, was Start Talking consent form obtained?: Yes Referrals: Kellie Robison MD [Primary Care Provider] - 1-2 days Sue Hunt MD [STAFF PHYSICIAN] - 1-2 days Time of Disposition: 09:40
--- NOTE | 2022-03-08 09:18 | CT ---
EXAMINATION TYPE: CT angio abdomen pelvis DATE OF EXAM: 03/08/2022 COMPARISON: 07/13/2017 HISTORY: Blood in stool CT DLP: 1851.7 mGycm CONTRAST: CTA abdominal aorta with 3-D reconstruction is performed without Oral Contrast and without and with I V Contrast, patient injected with 100 mL of Isovue 370. 3-D reconstruction imaging obtained at a separate workstation. CONTRAST CT ABDOMEN AND PELVIS ABDOMINAL AORTA: No evidence for abdominal aortic aneurysm. No dissection. Iliac vessels are symmet tima and patent. LIVER/GB- No significant abnormality is seen. PANCREAS- No significant abnormality is seen. SPLEEN- No significant abnormality is seen. ADRENALS- No significant abnormality is seen. KIDNEYS/BLADDER- No significant abnormality is seen. BOWEL-there is mild wall thickening involving the descending colon suspicious for nonspecific colitis . No evidence for obstruction, free air or abscess. Small bowel is of normal caliber. GENITAL ORGANS: Calcified leiomyomatous change of the uterine fundus. Tubal ligation clips. LYMPH NODES- No greater than 1cm abdominal or pelvic lymph nodes are appreciated. OSSEOUS STRUCTURES- No significant abnormality is seen. OTHER- No significant abnormality is seen. IMPRESSION- 1. Mild wall thickening involving the descending colon suspicious for nonspecific colitis.
[2022-03-08] MEDS ORDERED: AMOXIC-POT CLAV 875-125MG 1 EACH TAB PO STA (09:48)
[2022-03-08 10:15] VITALS: BP 109/62; PULSE 92; TEMP 97.8
== END 2022-03-08 10:17 | disposition home or self-care (01) ==
LOC: EC 06:55
DX: K52.9 Noninfective gastroenteritis and colitis, unspecified (principal); E78.5 Hyperlipidemia, unspecified; I10 Essential (primary) hypertension
CPT/HCPCS: 36415; 93005; 86900; 86901; 80053; 83605; 83690; 83735; 85025; 85610; 85730; 86850; 82272; 84703; 71046; 74174; 99285; 96374; 96375 ×2; 96361 ×2; J2270; J2405; C9113; Q9967

== ENCOUNTER 2022-09-27 11:46 | Day surgery (SDC) | payer MEDICAID, BC ==
[2022-09-22 11:07] VITALS: BMI 32.0
[2022-09-27] MEDS ORDERED: LACTATED RINGERS 1,000 ML IV ONE (12:15)
[2022-09-27 12:28] VITALS: TEMP 97.3
[2022-09-27] MEDS ORDERED: PROPOFOL 10 MG/ML 20 ML VIAL IV ONE (12:55)
[2022-09-27] MEDS ORDERED: LIDOCAINE 2% INJ 20 MG/ML (2 ML VIAL) ONE (12:55)
--- NOTE | 2022-09-27 13:00 | P.GSHP ---
History of Present Illness H&P Date: 09/27/22 Chief Complaint: GI bleeding 51-year-old female here for colonoscopy. Family history of colon cancer in her sister. Has had intermittent diarrhea, left lower quadrant pain, and some rectal bleeding. Last episode of rectal bleeding in February. He had CAT scan performed showing mild colonic wall thickening involving the left colon. Last colonoscopy 3 years ago was normal. Past Medical History Past Medical History: Hyperlipidemia, Hypertension, Supraventricular Tachycardia (SVT) Additional Past Medical History / Comment(s): EPISODE SUPRAVENTRICULAR TACHYCARDIA ON 10/03/14- HEART RATE WAS 270- SEEN IN [facility] SEE DR. URBINA'S H&P, HERNIATED DISC L4-L5, GLASSES DAILY USE , colitis History of Any Multi-Drug Resistant Organisms: None Reported Past Surgical History: Ablation, Section, Orthopedic Surgery, Tubal Ligation, Uterine Ablation Additional Past Surgical History / Comment(s): 01-13-15 CARDIAC ABLATION, OTHER HX INCLUDES6 EPIDERAL INJ - LAST ONE 01/07/15 @ [facility], X 2, LT SHOULDER SURGERY 2012, EGD 07/03/15, R wrist sx colonoscopy egd Past Anesthesia/Blood Transfusion Reactions: Previous Problems w/ Anesthesia Additional Past Anesthesia/Blood Transfusion Reaction / Comment(s): episode of racing heart when received block FOR LEFT SHOULDER SURG. could have been from svt 2014. no blood transfusion Smoking Status: Never smoker - Past Family History Sister(s) Family Medical History: Cancer Additional Family Medical History / Comment(s): twin sister w/new dx. colon cancer , 2019 Mother Family Medical History: Cancer, Hypertension Additional Family Medical History / Comment(s): kidney cancer Father Family Medical History: Coronary Artery Disease (CAD), Myocardial Infarction ([place]) Additional Family Medical History / Comment(s): @ AGE 52[place] Medications and Allergies Home Medications Medication Instructions Recorded Confirmed Type Venlafaxine HCl ER [Effexor Xr] 37.5 mg PO DAILY 10/28/19 09/27/22 History Losartan Potassium 50 mg PO DAILY 09/22/22 09/27/22 History Progesterone, Micronized 200 mg PO DAILY 09/22/22 09/27/22 History [Progesterone] Rosuvastatin [Crestor] 10 mg PO DAILY 09/22/22 09/27/22 History Triamterene/Hydrochlorothiazid 1 each PO DAILY 09/22/22 09/27/22 History [Triamterene-Hctz 37.5-25 mg Cp] estradioL [Korin 0.05 MG/24 HR] 1 patch TRANSDERM Q84H 09/22/22 09/27/22 History Allergies Allergy/AdvReac Type Severity Reaction Status Date / Time No Known Allergies Allergy Verified 09/27/22 12:17 Surgical - Exam Vital Signs Temp Pulse Resp BP Pulse Ox 97.3 F L 79 16 142/83 97 09/27/22 12:15 09/27/22 12:15 09/27/22 12:15 09/27/22 12:15 09/27/22 12:15 Physical exam: General: Well-developed, well-nourished HEENT: Normocephalic, sclerae nonicteric Abdomen: Nontender, nondistended Extremities: No edema Neuro: Alert and oriented Assessment and Plan (1) Colitis Narrative/Plan: Will proceed with colonoscopy at this time. Current Visit: Yes Status: Acute Code(s): K52.9 - NONINFECTIVE GASTRO ENTERITIS AND COLITIS, UNSPECIFIED SNOMED Code(s): 14746002
--- NOTE | 2022-09-27 13:17 | P.PCN ---
Date of Procedure: 09/27/22 Procedure(s) Performed: PREOPERATIVE DIAGNOSIS: Colitis, rectal bleeding, family history of colon cancer POSTOPERATIVE DIAGNOSIS: Mild diverticulosis otherwise normal PROCEDURE: Colonoscopy with biopsy random ANESTHESIA: MAC SURGEON: Hai Robison M.D. SPECIMENS: Random biopsy ENDOSCOPIC PROCEDURE: The patient was placed on the endoscopy table in the left decubitus position. The Olympus colonoscope was inserted into the anus and passed under direct visualization to the base of the cecum. The appendiceal orifice was visualized. From that point the scope was slowly withdrawn inspecting all surfaces carefully. There were no neoplastic inflammatory or polypoid lesions throughout the cecum, ascending, transverse, descending, sigmoid and rectum. There was mild left-sided diverticulosis noted. Random colon biopsies were taken given the CAT scan findings of colon wall thickening. Digital rectal examination was normal. The patient was taken to the recovery room in stable condition per anesthesia guidelines. RECOMMENDATIONS: Await biopsy results. Anticipate repeat colonoscopy 5 years.
[2022-09-27] MEDS ORDERED: LIDOCAINE 1% (10MG/ML) FOR IV START INTRADERMA PRN (13:30)
[2022-09-27] MEDS ORDERED: LACTATED RINGERS 1,000 ML IV SCH (13:30)
[2022-09-27 13:57] VITALS: BP 130/83; PULSE 82; RESP 16
== END 2022-09-27 14:10 | disposition home or self-care (01) ==
LOC: ORWHC2ENDO 11:46
PROVIDERS: ATTEND Surgery
DX: K57.30 Diverticulosis of large intestine without perforation or abscess without bleeding (principal); I10 Essential (primary) hypertension; I47.9 Paroxysmal tachycardia, unspecified; E78.5 Hyperlipidemia, unspecified; Z98.891 History of uterine scar from previous surgery; Z79.899 Other long term (current) drug therapy
CPT/HCPCS: 81025; 88305; 45380; J2704; J2001

== ENCOUNTER → 2023-02-24 | Outpatient (CLI) | payer MEDICAID, BC ==
--- NOTE | 2023-02-24 16:31 | MR ---
EXAMINATION TYPE: MR shoulder RT wo con DATE OF EXAM: 02/24/2023 COMPARISON: Radiograph 02/08/2023 HISTORY: 52-year-old female M25.511, Right shoulder pain and limited range of motion. TECHNIQUE: Multiplanar, multisequence imaging of the right shoulder is performed without contrast. FINDINGS: There is intermediate signal at the junction of the intracapsular and extracapsular portions of the l alanna head biceps tendon, sagittal image 26. The extracapsular portion remains appropriately situated a long the bicipital groove with small amount of tenosynovial fluid likely communicating with the joint space. Heterogeneous signal of the subscapularis tendon. There is a small intrasubstance versus articular si ded tear measuring 5 x 4 mm at the middle third fibers. The majority of the subscapularis tendon sushant ins intact. There is mild degenerative change of the AC joint with joint space narrowing, mild reactive subchondr al marrow signal change, and mild spurring. Anterior spurring encroaches onto the underlying myotendi nous junction of the supraspinatus. There is an accompanying small subacromial bursal effusion. The supraspinatus and infraspinatus tendons remain intact without discrete tear. Preserved volume of the rotator cuff musculature. The glenohumeral joint is intact. No significant joint effusion. There is some intermediate signal of the glenoid labrum at the superior posterior corner, coronal image 19 and axial image 18. No paral abral cyst is seen. No Hill-Sachs deformity or os acromiale. No suspicious bone marrow replacement. Of note, no abnormal soft tissue replacement in the rotator cuff interval. The coracohumeral ligament is normal thickness. No abnormal edematous thickening of the axillary recess. IMPRESSION: 1. Small (5 x 4 mm) intrasubstance versus articular sided tear of the middle third fibers of the subs capularis tendon insertion. The majority of the tendon remains intact. 2. Mild AC joint OA with mild subacromial impingement. 3. Mild tendinosis at the junction of the intracapsular and extracapsular portions of the LHBT. 4. Degenerative signal along the posterior superior corner of the glenoid labrum. No paralabral cyst. 5. (No soft tissue replacement of the rotator cuff interval, abnormal thickening of the coracohumeral ligament, or abnormal thickening of the axillary recess).
== END | disposition home or self-care (01) ==
LOC: RADMRIMAIN 14:54
PROVIDERS: ATTEND Orthopaedic Surgery
DX: M19.011 Primary osteoarthritis, right shoulder (principal); M25.811 Other specified joint disorders, right shoulder; M67.813 Other specified disorders of tendon, right shoulder

== ENCOUNTER → 2023-06-26 | Outpatient (CLI) | payer MEDICAID, BC ==
--- NOTE | 2023-06-26 12:54 | CA ---
Stress Echo Report Mariana Faust Age: 52 Gender: F : 1970 Exam Date: 06/26/2023 09:56 Exam Location: [facility] Ht (in): 63 Wt (lb): 160 Ordering Physician: Angelo Rodriguez MD ([id number]) Referring Physician: Angelo Rodriguez MD ([id number]) Test Baker: DEANDRE Technologist Procedure CPT: Indication: I47.1 tachycardia ICD-9 Codes: Rhythm: Patient History: HTN, HYPERCHOLESTEROLEMIA, FAMILY HX OF HEART DISEASE Cardiac Medications: Medications in past 24 hours: Contrast: Stress Results Protocol: Duc Total dose(mL): Exercise Duration (min:sec): 9:[address] Depression (mm): Angina Score: Chapa Score: METS: Resting HR: 85 Resting BP: 119 / 75 Peak HR: Peak BP: 166 / 89 Max Predicted HR: 169 % Max Predicted HR Target HR: 144 Double Product: Stress Summary: The patient's target heart rate was achieved BP Response: Normal Reason for Termination: MAX EXERTION/TARGET HR Cardiac Symptoms: NO SYMPTOMS ECG Analysis Resting ECG: Normal sinus rhythm, normal ECG Stress ECG: Borderline ST depression - inferio-lateral leads Arrhythmia: None Echo Analysis Resting Echo: Normal resting echocardiogram. Peak Echo Analysis: Normal treadmill stress echocardiogram. MEASUREMENTS (Male/Female) Normal Values CONCLUSIONS 1. Good exercise tolerance with borderline abnormal EKG response 2. Normal stress echocardiogram with no evidence of stress induced ischemia Dr. Anne-Marie Go MD (Electronically Signed) Final Date: 26 Jun 2023 12:53
== END | disposition home or self-care (01) ==
LOC: RADNMMAIN 09:04
PROVIDERS: ATTEND Internal Medicine Clinical Cardiac Electrophysiology
DX: R94.31 Abnormal electrocardiogram [ECG] [EKG] (principal); I49.3 Ventricular premature depolarization; I47.10 Supraventricular tachycardia, unspecified; I10 Essential (primary) hypertension; E78.00 Pure hypercholesterolemia, unspecified; Z82.49 Family history of ischemic heart disease and other diseases of the circulatory system
CPT/HCPCS: 93351

== ENCOUNTER → 2023-10-11 | Outpatient (CLI) | payer MEDICAID, BC ==
[2023-10-11 15:15] LABS: Basophils # (A) 0.05 X 10*3/uL (0.00-0.10); Basophils % (A) 0.7 %; Eosinophils # (A) 0.11 X 10*3/uL (0.04-0.35); Eosinophils % (A) 1.6 %; HCT 42.5 % (37.2-46.3); HGB 13.9 g/dL (12.0-15.0); Lymphocytes # (A) 1.96 X 10*3/uL (0.90-5.00); Lymphocytes % (A) 27.7 %; MCH 31.1 pg (27.0-32.0); MCHC 32.7 g/dL (32.0-37.0); MCV 95.1 FL (80.0-97.0); Mean Platelet Volume 9.9 FL (9.5-12.2); Monocytes # (A) 0.58 X 10*3/uL (0.20-1.00); Monocytes % (A) 8.2 %; NRBC Per 100 WBC 0 X 10*3/uL (0.00-0.01); Neutrophils # (A) 4.33 X 10*3/uL (1.80-7.70); Neutrophils % (A) 61.2 %; Platelet Count 366 X 10*3/uL (140-440); RBC 4.47 X 10*6/uL (4.10-5.20); RDW 12.2 % (11.5-14.5); WBC 7.07 X 10*3/uL (4.50-10.00)
[2023-10-11 16:19] LABS: Thyroid Peroxidase Antibodies 14.9 U/mL (0.0-33.0)
[2023-10-11 16:20] LABS: Progesterone 8.2 ng/mL
[2023-10-11 16:30] LABS: ALT 21 U/L (8-44); AST 18 U/L (13-35); Albumin 4.6 g/dL (3.8-4.9); Alkaline Phosphatase 93 U/L (41-126); BUN/Creat Ratio 25.44 Ratio (12.00-20.00); Blood Urea Nitrogen 22.9 mg/dL (9.0-27.0); Calcium 9.9 mg/dL (8.7-10.3); Carbon Dioxide 21.6 mmol/L (21.6-31.8); Chloride 102 mmol/L (96-109); Chol/HDL Ratio 2.85 Ratio; Estradiol <20.0 pg/mL; Globulin 2.3 g/dL (1.6-3.3); Glucose 95 mg/dL (70-110); LDL Cholesterol,Calculated 88.4 mg/dL (0.0-131.0); Potassium 4.1 mmol/L (3.5-5.5); Sodium 140 mmol/L (135-145); T4, Free (Free Thyroxine) 0.95 ng/dL (0.80-1.80); Total Bilirubin 0.4 mg/dL (0.3-1.2); Total Protein 6.9 g/dL (6.2-8.2)
[2023-10-11 16:40] LABS: Testosterone <10.00 ng/dL (7.00-45.62)
[2023-10-11 16:51] LABS: Follicle Stimulating Hormone 72.5 mIU/mL
== END | disposition home or self-care (01) ==
LOC: LABPAT 09:52
PROVIDERS: ATTEND Obstetrics & Gynecology
DX: Z01.812 Encounter for preprocedural laboratory examination (principal); Z13.220 Encounter for screening for lipoid disorders; Z13.29 Encounter for screening for other suspected endocrine disorder; N95.1 Menopausal and female climacteric states; M75.41 Impingement syndrome of right shoulder; R53.83 Other fatigue
CPT/HCPCS: 80053; 80061; 82670; 83001; 83036; 84144; 84403; 84439; 84443; 84481; 85025; 86376

== ENCOUNTER 2023-10-25 05:47 | Day surgery (SDC) | payer MEDICAID, BC ==
--- NOTE | 2023-10-24 13:13 | HP ---
HISTORY AND PHYSICAL DATE OF SCHEDULED SURGERY: 10/25/2023. HISTORY OF PRESENT ILLNESS: Mariana Faust is a 52-year-old patient seen with progressive right shoulder pain. We discussed options regarding treatment. She elected to proceed with right shoulder arthroscopy. Consent was obtained. PAST MEDICAL HISTORY: Hypertension, hyperlipidemia. PAST SURGICAL HISTORY: Left shoulder arthroscopy, section, and tonsillectomy. DAILY MEDICATIONS: 1. Crestor. 2. Effexor. 3. Losartan. 4. Motrin. ALLERGIES: None. SOCIAL HISTORY: She denies tobacco use. PHYSICAL EVALUATION OF RIGHT SHOULDER: Flexion is 100 degrees. Abduction is 90 degrees. External rotation 0 degrees with some weakness, tenderness along the anterior lateral acromion rotator cuff insertion. Impingement is positive at 60 degrees. Drop-arm sign is positive. Distal neurovascular exam is intact. IMAGING: Radiographs of right shoulder a lateral downsloping acromion. MRI right shoulder, partial rotator cuff tendon tear, acromioclavicular joint osteoarthritis, and bicipital tendinitis. IMPRESSION: 1. Right shoulder impingement with partial rotator cuff tear. 2. Right shoulder acromioclavicular joint osteoarthritis. 3. Right shoulder adhesive capsulitis. PLAN: Right shoulder arthroscopy with subacromial decompression, arthroscopic rotator cuff repair, lysis of adhesions, biceps tenodesis, Monisha, and debridement. MMODL / IJN: [id number] /
[2023-10-25] MEDS ORDERED: LIDOCAINE 1% (10MG/ML) FOR IV START INTRADERMA PRN (06:04)
[2023-10-25] MEDS ORDERED: LACTATED RINGERS 1,000 ML IV SCH (06:04)
[2023-10-25] MEDS: LACTATED RINGERS 1,000 ML IV ONE ×2 (06:08→09:01)
[2023-10-25 06:18] VITALS: RESP 16
[2023-10-25] MEDS: ONDANSETRON 4 MG/2 ML VIAL IVP ONE (06:55)
[2023-10-25] MEDS: DEXAMETHASONE SOD PHOSPHATE 4 MG/ML 1 ML VIAL IV ONE (06:55)
[2023-10-25] MEDS ORDERED: HYDROmorphone 0.5 MG/0.5 ML SYRINGE IVP PRN (07:00)
[2023-10-25] MEDS ORDERED: fentaNYL (PF) 50 MCG/ML 2 ML AMP IVP PRN (07:00)
[2023-10-25] MEDS: MIDAZOLAM 2 MG/2 ML VIAL IV PRN (07:01)
[2023-10-25] MEDS ORDERED: ROPIVACAINE 5 MG/ML 30 ML VIAL ONE (07:28)
[2023-10-25] MEDS ORDERED: DEXAMETHASONE SOD PHOSPHATE 4 MG/ML 1 ML VIAL ONE (07:28)
[2023-10-25] MEDS ORDERED: PROPOFOL 10 MG/ML 20 ML VIAL IV ONE (07:28)
[2023-10-25] MEDS ORDERED: SUCCINYLCHOLINE CHLORIDE 200 MG/10 ML VIAL IV ONE (07:28)
[2023-10-25] MEDS ORDERED: LIDOCAINE 1% INJ 10MG/ML (20 ML MDV) ONE (07:28)
[2023-10-25] MEDS ORDERED: MIDAZOLAM 2 MG/2 ML VIAL ONE (07:28)
[2023-10-25] MEDS ORDERED: fentaNYL (PF) 50 MCG/ML 2 ML AMP ONE (07:28)
[2023-10-25] MEDS ORDERED: KETOROLAC 15 MG/ML 1 ML VIAL ONE (07:28)
[2023-10-25] MEDS ORDERED: LIDOCAINE 4% LTA KIT (4 ML) TOPICAL ONE (07:28)
--- NOTE | 2023-10-25 09:21 | P.OP ---
Date of Procedure: 10/25/23 Preoperative Diagnosis: Right shoulder impingement Postoperative Diagnosis: 1. Right shoulder bicipital tendinitis 2. Right shoulder impingement 3. Right shoulder acromioclavicular joint osteoarthritis 4. Right shoulder adhesive capsulitis Procedure(s) Performed: 1. Right shoulder arthroscopic biceps tenodesis 2. Right shoulder arthroscopic subacromial decompression 3. Right shoulder arthroscopic Monisha procedure 4. Right shoulder arthroscopic lysis of adhesions Implants: 1Arthrex 4.75 swivel lock anchor Anesthesia: GETA, regional (Interscalene block) Surgeon: Goyo Landry Production Truck Driver #1: Jourdan Otero Estimated Blood Loss (ml): 11 Pathology: none sent Condition: stable Disposition: PACU Indications for Procedure: 52-year-old patient seen with progressive right shoulder pain. After having treatment options discussed, she elected to proceed with arthroscopy. Operative Findings: See description of procedure Description of Procedure: Patient underwent an interscalene block by department of anesthesia. The patient was then taken to the operative suite. The patient underwent a general anesthetic by the department of anesthesia. The patient was placed into a lateral position and secured. There was appropriate padding of the bony prominence. Right shoulder was then prepped and draped in normal sterile orthopedic fashion. We placed the extremity in 10 pounds of longitudinal traction. A posterior incision was now made for a posterior working portal site. The trocar and cannula were inserted into the glenohumeral joint. Arthroscopy was initiated. Spinal needle was now inserted anteriorly, to ascertain the anterior working portal site. An incision was now made in that area, a trocar was inserted followed by a probe. There was significant hyperemia long head biceps tendon consistent with chronic bicipital tendinitis. The labrum was probed and was found to be stable. There was no chondromalacia. There were adhesions in the anterior and inferior aspect of the shoulder joint. At this point I performed a lysis of the adhesions. I decided to proceed with arthroscopic biceps tenodesis. I introduced the cannula through the anterior portal site. I passed a loop and tack type stitch through the biceps tendon. I released the biceps from the superior labral anchor. With the assistance of Manuel VENTURA I punched a hole at the interval for insertion of an anchor. The suture line was passed through the eyelet of an Arthrex 4.75 swivel lock anchor. I placed the eyelet into the preplanned hole. I held in position while Manuel VENTURA tensioned the suture and deployed the anchor with good fixation noted. The residual suture limb was clipped. We had a stable appearing biceps tenodesis. I again noted good lysis of adhesions in the intra-articular portion of the shoulder. Instruments were removed from the glenohumeral joint. Utilizing the posterior working portal site, the trocar and cannula were inserted into the subacromial space. Arthroscopy initiated. I made an incision 2 fingerbreadths lateral to the acromion. I introduced my trocar followed by my ArthroCare ablator. I now began ablating thick subacromial bursal tissue, which exposed the undersurface of the anterior acromion. There was diminished subacromial space. There was a very prominent anterior acromion. A motorized bur was introduced and a subacromial decompression was performed. I also excised some osteophytes off the inferior aspect of the distal clavicle. The AC joint was visualized and noted to be fairly arthritic. The motorized bur was introduced in the anterior portal site and a Monisha procedure was performed without difficulty removing 8 mm of bone off the distal clavicle, decompressing the AC joint nicely. I turned my attention to the rotator cuff tendon. There was some scar tissue along the anterior lateral aspect I performed a lysis of those adhesions as well. I now noted some partial tearing of the tendon. I debrided out with a motorized shaver. I probed the entire rotator cuff tendon and I did not note any evidence for any perforations or tears. Instruments now removed from the portal sites. All portal sites were approximated with nylon suture. Sterile dressings were applied followed by a shoulder sling. Jourdan VENTURA assisted in this complex case. The patient was awakened, transferred to a bed, and taken to recovery in stable condition.
[2023-10-25 09:23] VITALS: TEMP 98.2
[2023-10-25 11:37] VITALS: BP 124/70; PULSE 90
--- NOTE | 2023-10-26 20:52 | P.ANPRN ---
Procedure Note - Anesthesia - Nerve Block Performed Right Interscalene Single Time Out Performed: Yes Date of Procedure: 10/25/23 Procedure Start Time: 07:00 Procedure Stop Time: 07:04 Location of Patient: PreOp Indication: Acute Post-Operative Pain, Requested by Surgeon Sedation Type: Sedate with meaningful contact maintained Preparation: Sterile Prep Position: Supine Needle Types: Pajunk Needle Gauge: 21 Ultrasound used to visualize needle placement: Yes Ultrasound used to observe medication spread: Yes Blood Aspirated: No Pain Paresthesia on Injection Noted: No Resistance on Injection: Normal Image Stored and Saved: Yes Events: Uneventful and Well Tolerated (Ropivacaine 0.5% 20 cc plus dexamethasone 4 mg)
== END 2023-10-25 11:39 | disposition home or self-care (01) ==
LOC: OR 05:47
PROVIDERS: ATTEND Orthopaedic Surgery
DX: M75.01 Adhesive capsulitis of right shoulder (principal); M75.41 Impingement syndrome of right shoulder; M75.111 Incomplete rotator cuff tear or rupture of right shoulder, not specified as traumatic; M75.21 Bicipital tendinitis, right shoulder; M25.811 Other specified joint disorders, right shoulder; M19.011 Primary osteoarthritis, right shoulder; I10 Essential (primary) hypertension; E78.5 Hyperlipidemia, unspecified; G89.18 Other acute postprocedural pain; Z90.89 Acquired absence of other organs
CPT/HCPCS: 64447; 81025